=== PATIENT | male | born 1960 | race Caucasian/White ===

== ENCOUNTER 2016-10-20 05:51 | Day surgery (SDC) | payer BC ==
[2016-10-20] MEDS ORDERED: Lactated Ringers 1,000 ML IV SCH (06:30)
[2016-10-20] MEDS ORDERED: DIPRIVAN 200 MG/20 ML IV ONE (08:00)
[2016-10-20 08:15] VITALS: O2SAT 96
[2016-10-20 08:38] VITALS: BP 138/88; PULSE 74
[2016-10-20] MEDS ORDERED: Ketamine HCl 50 MG/ML IJ ONE (09:00)
--- NOTE | 2016-10-20 09:51 | OP ---
SURGERY DATE/TIME: 10/20/2016721 PREOPERATIVE DIAGNOSIS: Abdominal pain, constipation. POSTOPERATIVE DIAGNOSIS: Constipation and focal area of ischemic appearing colon and the ascending colon otherwise normal colon. PROCEDURE: Colonoscopy. SURGEON: Dr. Ferrell. ANESTHESIA: MAC. Medications given by anesthesia department. HISTORY: The patient is a 55 year-old white male patient presenting now for complaints of abdominal pain. He reports the pain is in the periumbilical area. He also reports that he has been having trouble with constipation. The patient has never been evaluated previously. He was felt the need to have endoscopic evaluation. He was appraised of the risks of the procedure including the risk of perforation, phlebitis, untoward reaction to medication, bleeding, and missed lesions. The patient verbalized his understanding and desired to have the procedure performed. DESCRIPTION OF PROCEDURE: The patient was given the medications by the anesthesia department. He had continuous pulse oximetry, ECG monitoring, intermittent blood pressure monitoring, and tidal CO2 monitoring during the examination. He was placed in the left lateral decubitus position. A digital rectal examination was performed and revealed normal anal sphincter tone and no masses and normal prostate. The flexible Olympus pediatric colonoscope was used to intubate the rectum. A view of the colon was developed sequentially to the cecum. Upon insertion and withdrawal there was noted semi-solid stool throughout the colon. We were however able to progress to the ascending colon without much difficulty. In the ascending colon area we did notice an area that appeared to be blanched and slightly friable concerning for the possibility of ischemic changes. The patient does have a history of previous coronary artery disease and myocardial infarction. Upon insertion and withdrawal including retroflex view in the rectum, no mucosal lesions otherwise being noted. The scope was removed from the patient who tolerated the procedure well and was sent back to OP recovery in good condition. The prep was noted to be poor.
== END 2016-10-20 08:45 | disposition home or self-care (01) ==
LOC: SDC 05:51
PROVIDERS: ATTEND Family Medicine
PROC: 0DJD8ZZ Inspection of Lower Intestinal Tract, Via Natural or Artificial Opening Endoscopic (ICD-10-PCS; principal; 2016-10-20)
DX: K59.00 Constipation, unspecified (principal); I10 Essential (primary) hypertension; I25.10 Atherosclerotic heart disease of native coronary artery without angina pectoris; I25.2 Old myocardial infarction
CPT/HCPCS: 00810; J2704

== ENCOUNTER 2024-10-24 23:54 | Emergency (ER) | payer OTHER ==
[2024-10-25 00:05] VITALS: TEMP 98.1
--- NOTE | 2024-10-25 00:05 | ERPHSYRPT ---
- History of Present Illness Historian: patient Exam Limitations: no limitations Physician History: Patient developed some chest pain right after he ate dinner. This was about 4 hours ago. He said it is in his substernal area. He says it feels tight and like a burn he said it was really intense at first and it hurt to breathe when it was going on. Symptoms have persisted but have also improved. HeHas a history of reflux and said that this feels somewhat similar. He also has a history of coronary vascular disease. He did not have any nausea. He did not have any shortness of breath but said it hurt to take deep breaths especially when the chest pain was at its worst. He has not thrown up. He says he feels like he needs to belch and it would get better. Aspirin Treatment Today: 81 mg x 4 Allergies/Adverse Reactions: codeine Allergy (Intermediate, Verified 10/25/24 00:13) Nausea severe cramping Home Medications: Atorvastatin Calcium [Lipitor 20MG Tablet] 20 mg PO HS 10/11/16 [History] Aspirin EC 81 mg [Ecotrin 81 mg] 81 mg PO DAILY 10/25/24 [History] Loratadine 10 mg [Claritin 10 mg] 10 mg PO DAILY 10/25/24 [History] Losartan/Hydrochlorothiazide [Losartan-Hctz 100-12.5 mg Tab] 1 each PO DAILY 10/25/24 [History] Nebivolol HCl 5 MG [Bystolic 5 MG] 20 mg PO DAILY 10/25/24 [History] PANTOPRAZOLE 40 mg Tablet [Protonix 40MG Tablet] 40 mg PO HS 10/25/24 [History] Hx Tetanus, Diphtheria Vaccination/Date Given: No Hx Influenza Vaccination/Date Given: No Hx Pneumococcal Vaccination/Date Given: No - Review of Systems Constitutional: No Symptoms Eyes: No Symptoms Ears, Nose, & Throat: No Symptoms Respiratory: No Symptoms Cardiac: Chest Pain Genitourinary Symptoms: No Symptoms Musculoskeletal: No Symptoms All Other Systems: Reviewed and Negative - Past Medical History Pertinent Past Medical History: Yes Neurological History: No Pertinent History ENT History: No Pertinent History Cardiac History: Coronary Artery Disease, High Cholesterol, Hypertension, [place] cardial Infarction ([place]) Respiratory History: Sleep Apnea Endocrine Medical History: No Pertinent History Musculoskeletal History: Arthritis GI Medical History: GERD History: No Pertinent History Psycho-Social History: No Pertinent History Male Reproductive Disorders: No Pertinent History Other Medical History: periumbilical abcess, patient has sleep apnea - Past Surgical History Past Surgical History: Yes Neuro Surgical History: No Pertinent History Cardiac: Cardiac Catheterization, Cardiac Stent Respiratory: No Pertinent History Gastrointestinal: Hernia Repair Genitourinary: No Pertinent History Musculoskeletal: No Pertinent History Male Surgical History: No Pertinent History Significant Family History: heart disease, hypertension - Social History Smoking Status: Never smoker Exposure to second hand smoke: Yes Drug Use: none - Nursing Vital Signs Nursing Vital Signs: Initial Vital Signs Temperature 98.1 F 10/24/24 23:56 Pulse Rate 114 H 10/24/24 23:56 Respiratory Rate 18 10/24/24 23:56 Blood Pressure 199/103 10/24/24 23:56 O2 Sat by Pulse Oximetry 95 10/24/24 23:56 Pain Scale Pain Intensity 0 - Physical Exam General Appearance: no apparent distress Eye Exam: PERRL/EOMI Neck Exam: normal inspection Respiratory Exam: normal breath sounds, lungs clear, No chest tenderness, No respiratory distress Cardiovascular Exam: regular rate/rhythm, normal heart sounds, normal peripheral pulses Gastrointestinal/Abdomen Exam: soft, normal bowel sounds, No tenderness Back Exam: normal inspection, normal range of motion Extremity Exam: normal inspection, normal range of motion Neurologic Exam: alert, oriented x 3, cooperative, 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, normal mood/affect Skin Exam: normal color, warm, dry - Course EKG Interpreted by Me: RATE, Sinus Tach, Left Henrietta Deviation, NORMAL QRS, Non- specific ST Changes Ordered Tests: Active Orders 24 hr Category Date Time Status CBC W DIFF Stat Lab 10/25/24 00:30 Completed CMP Stat Lab 10/25/24 00:30 Completed D-DIMER QUANTITATIVE Stat Lab 10/25/24 00:32 Completed Lactic Acid Stat Lab 10/25/24 02:09 Completed Lactic Acid Stat Lab 10/25/24 03:45 Completed MAG [MAGNESIUM] Stat Lab 10/25/24 00:30 Completed TROPONIN Q4H Lab 10/25/24 00:30 Completed TROPONIN Q4H Lab 10/25/24 03:36 Completed TROPONIN Q4H Lab 10/25/24 09:30 Ordered VENOUS BLOOD GAS Stat Lab 10/25/24 01:54 Completed Medication Summary Discontinued Medications Generic Name Dose Route Start Last Admin Trade Name Jose A PRN Reason Stop Dose Admin Al Hydrox/Mg Hydrox/Simethicone Confirm 10/25/24 00:23 Mag Hydrox/Al Hydrox/Simeth 30 Ml Udcup Administered 10/25/24 00:24 Dose 30 ml .ROUTE .STK-MED ONE Aspirin 324 mg 10/25/24 00:09 10/25/24 00:18 Aspirin 81 Mg Tab.Chew PO 10/25/24 00:10 Not Given STAT ONE Sodium Chloride 1,000 mls @ 999 mls/hr 10/25/24 01:53 10/25/24 03:04 Sodium Chloride 0.9% 1000 Ml IV 10/25/24 02:53 Infused .Q1H1M STA Infusion Sodium Chloride Confirm 10/25/24 02:02 Sodium Chloride 0.9% 1000 Ml Administered 10/25/24 02:03 Dose 1,000 mls @ ud .ROUTE .STK-MED ONE Sodium Chloride 1,000 mls @ 999 mls/hr 10/25/24 02:26 10/25/24 04:08 Sodium Chloride 0.9% 1000 Ml IV 10/25/24 03:26 Infused .Q1H1M STA Infusion Sodium Chloride Confirm 10/25/24 02:57 Sodium Chloride 0.9% 1000 Ml Administered 10/25/24 02:58 Dose 1,000 mls @ ud .ROUTE .STK-MED ONE Lidocaine HCl Confirm 10/25/24 00:23 Lidocaine Hcl 2% Viscous 15 Ml Udcup Administered 10/25/24 00:24 Dose 15 ml .ROUTE .STK-MED ONE Magnesium Hydroxide 45 ml 10/25/24 00:09 10/25/24 00:24 Mag Hydrx/Alum Hyd/Simeth/Lido 45 Ml Bottle PO 10/25/24 00:10 45 ml STAT ONE Administration Lab/Rad Data: Laboratory Result Diagrams 10/25/24 00:30 10/25/24 00:30 Laboratory Results 10/25/24 10/25/24 10/25/24 Range/Units 03:45 03:36 02:09 WBC (4.23-9.07) x10^3/uL RBC (4.63-6.08) x10^6/uL Hgb (13.7-17.5) g/dL Hct (40.1-51.0) % MCV (79.0-92.2) fL MCH (25.7-32.2) pg MCHC (32.3-36.5) g/dL RDW (11.6-14.4) % Plt Count (163-337) x10^3/uL MPV (9.4-12.4) fL Gran % (34.0-67.9) % Immature Gran % (Auto) (0.001-0.429) % Nucleat RBC Rel Count (0.00-0.2) % Eos # (Auto) (0.04-0.54) x10^3/uL Immature Gran # (Auto) (0.001-0.031) x10^3u/L Absolute Lymphs (auto) (1.32-3.57) x10^3/uL Absolute Monos (auto) (0.30-0.82) x10^3/uL Absolute Nucleated RBC (0.00-0.012) x10^3u/L Lymphocytes % (21.8-53.1) % Monocytes % (5.3-12.2) % Eosinophils % (0.8-7.0) % Basophils % (0.2-1.2) % Absolute Granulocytes (1.78-5.38) x10^3/uL Basophils # (0.01-0.08) x10^3/uL D-Dimer (0.0-0.50) mg/L pO2/FiO2 Ratio % VBG pH (7.32-7.42) VBG pCO2 at Pat Temp (42-55) mm/Hg VBG pO2 at Pat Temp (25-40) mm/Hg VBG HCO3 (22-28) meq/L VBG O2 Sat (Yariel) (95-100) VBG Base Excess (-2.0-2.0) VBG Hemoglobin VBG Carboxyhemoglobin (0.0-6.9) % T HGB POC Potassium (3.5-5.1) Sodium (135-145) mmol/L Potassium (3.5-5.1) mmol/L Chloride (98-107) mmol/L Carbon Dioxide (22-30) mmol/L Anion Gap (5-15) MEQ/L BUN (9-20) mg/dL Creatinine (0.66-1.25) mg/dL Estimated GFR ML/MIN Glucose (74-106) mg/dL Lactic Acid 3.1 H 4.0 H (0.4-2.0) Calcium (8.4-10.2) mg/dL Magnesium (1.6-2.3) mg/dL Total Bilirubin (0.2-1.3) mg/dL AST (17-59) U/L ALT (0-50) U/L Alkaline Phosphatase (38-126) U/L Troponin I 0.475 H* (0.000-0.033) ng/mL Serum Total Protein (6.3-8.2) g/dL Albumin (3.5-5.0) g/dL 10/25/24 10/25/24 10/25/24 Range/Units 01:54 00:32 00:30 WBC (4.23-9.07) x10^3/uL RBC (4.63-6.08) x10^6/uL Hgb (13.7-17.5) g/dL Hct (40.1-51.0) % MCV (79.0-92.2) fL MCH (25.7-32.2) pg MCHC (32.3-36.5) g/dL RDW (11.6-14.4) % Plt Count (163-337) x10^3/uL MPV (9.4-12.4) fL Gran % (34.0-67.9) % Immature Gran % (Auto) (0.001-0.429) % Nucleat RBC Rel Count (0.00-0.2) % Eos # (Auto) (0.04-0.54) x10^3/uL Immature Gran # (Auto) (0.001-0.031) x10^3u/L Absolute Lymphs (auto) (1.32-3.57) x10^3/uL Absolute Monos (auto) (0.30-0.82) x10^3/uL Absolute Nucleated RBC (0.00-0.012) x10^3u/L Lymphocytes % (21.8-53.1) % Monocytes % (5.3-12.2) % Eosinophils % (0.8-7.0) % Basophils % (0.2-1.2) % Absolute Granulocytes (1.78-5.38) x10^3/uL Basophils # (0.01-0.08) x10^3/uL D-Dimer < 0.19 (0.0-0.50) mg/L pO2/FiO2 Ratio 21.0 % VBG pH 7.41 (7.32-7.42) VBG pCO2 at Pat Temp 31 L (42-55) mm/Hg VBG pO2 at Pat Temp 77 H (25-40) mm/Hg VBG HCO3 19.6 L (22-28) meq/L VBG O2 Sat (Yariel) 97.2 (95-100) VBG Base Excess -3.7 L (-2.0-2.0) VBG Hemoglobin 17.6 VBG Carboxyhemoglobin 2.7 (0.0-6.9) % T HGB POC Potassium 4.7 (3.5-5.1) Sodium (135-145) mmol/L Potassium (3.5-5.1) mmol/L Chloride (98-107) mmol/L Carbon Dioxide (22-30) mmol/L Anion Gap (5-15) MEQ/L BUN (9-20) mg/dL Creatinine (0.66-1.25) mg/dL Estimated GFR ML/MIN Glucose (74-106) mg/dL Lactic Acid (0.4-2.0) Calcium (8.4-10.2) mg/dL Magnesium (1.6-2.3) mg/dL Total Bilirubin (0.2-1.3) mg/dL AST (17-59) U/L ALT (0-50) U/L Alkaline Phosphatase (38-126) U/L Troponin I 0.014 (0.000-0.033) ng/mL Serum Total Protein (6.3-8.2) g/dL Albumin (3.5-5.0) g/dL 10/25/24 10/25/24 Range/Units 00:30 00:30 WBC 7.2 (4.23-9.07) x10^3/uL RBC 5.55 (4.63-6.08) x10^6/uL Hgb 17.0 (13.7-17.5) g/dL Hct 48.2 (40.1-51.0) % MCV 86.8 (79.0-92.2) fL MCH 30.6 (25.7-32.2) pg MCHC 35.3 (32.3-36.5) g/dL RDW 13.1 (11.6-14.4) % Plt Count 236 (163-337) x10^3/uL MPV 9.2 L (9.4-12.4) fL Gran % 91.6 H (34.0-67.9) % Immature Gran % (Auto) 0.8 H (0.001-0.429) % Nucleat RBC Rel Count 0.0 (0.00-0.2) % Eos # (Auto) 0 L (0.04-0.54) x10^3/uL Immature Gran # (Auto) 0.06 H (0.001-0.031) x10^3u/L Absolute Lymphs (auto) 0.41 L (1.32-3.57) x10^3/uL Absolute Monos (auto) 0.13 L (0.30-0.82) x10^3/uL Absolute Nucleated RBC 0.00 (0.00-0.012) x10^3u/L Lymphocytes % 5.7 L (21.8-53.1) % Monocytes % 1.8 L (5.3-12.2) % Eosinophils % 0.0 L (0.8-7.0) % Basophils % 0.1 L (0.2-1.2) % Absolute Granulocytes 6.59 H (1.78-5.38) x10^3/uL Basophils # 0.01 (0.01-0.08) x10^3/uL D-Dimer (0.0-0.50) mg/L pO2/FiO2 Ratio % VBG pH (7.32-7.42) VBG pCO2 at Pat Temp (42-55) mm/Hg VBG pO2 at Pat Temp (25-40) mm/Hg VBG HCO3 (22-28) meq/L VBG O2 Sat (Yariel) (95-100) VBG Base Excess (-2.0-2.0) VBG Hemoglobin VBG Carboxyhemoglobin (0.0-6.9) % T HGB POC Potassium (3.5-5.1) Sodium 138 (135-145) mmol/L Potassium 4.2 (3.5-5.1) mmol/L Chloride 104 (98-107) mmol/L Carbon Dioxide 14 L* (22-30) mmol/L Anion Gap 23.8 H (5-15) MEQ/L BUN 15 (9-20) mg/dL Creatinine 0.96 (0.66-1.25) mg/dL Estimated GFR 89.4 ML/MIN Glucose 230 H (74-106) mg/dL Lactic Acid (0.4-2.0) Calcium 9.7 (8.4-10.2) mg/dL Magnesium 2.0 (1.6-2.3) mg/dL Total Bilirubin 0.80 (0.2-1.3) mg/dL AST 30 (17-59) U/L ALT 38 (0-50) U/L Alkaline Phosphatase 79 (38-126) U/L Troponin I (0.000-0.033) ng/mL Serum Total Protein 7.8 (6.3-8.2) g/dL Albumin 5.0 (3.5-5.0) g/dL - Progress Progress: improved Air Movement: good Progress Note: At this time the patient's symptoms seem to be GI related. Also he said that it did get worse whenever he lay down to go to sleep but whenever he laid flat that is when the symptoms started. That does indicate are 0.2 reflux type a cause. We are of course going to rule out coronary vascular etiologies. I will going to get an initial troponin and repeat 1 in 3 hours. His EKG was done it was tachycardia but there were no ST or T changes.The patient is not short of breath.The patient drank a GI cocktail and his symptoms resolved. I am going to get a initial troponin and then 3-hour troponin and if those are okay he can go home.I am going to start him onAnd H2 lisa.His first troponinWas not elevated. His second 1 came backAt 0.475. His initial EKG was interpreted by me. It was sinus tachycardia. There is no ST or T changes. There is some LVH. His repeat troponin came back at 0.475 his repeat EKG showed sinus tachycardia with no acute changes or no acute ST changes. His some left ventricular hypertrophy as well.I am going to start him on heparin and call [facility] transfer for an NSTEMI. The patient refused admission. I told him that he was at risk for worsening of his condition and possible . He said he just wants to go home. Will have him sign out AMA. His lactic acid was elevated at 4. His initial chemistry panel showed a bicarb of 14. A repeat on VBG showed 7.4 pH and a bicarb of 19. I started the patient on 2 L of fluids. We are waiting on a second troponin. It came back elevated. I went to talk to the patient about transfer and he adamantly refused. I explained to him that he has some complicated issues going on and needs to be evaluated and he refused. He was in his right mind and was able to make informed decisions.I warned him of complications including worsening and 10/25/24 00:28 10/25/24 01:10 10/25/24 04:36 10/25/24 04:48 10/25/24 04:50 Blood Culture(s) Obtained: No Medical Desision Making - Independent Historian Additional History obtained from: Spouse - Diagnostic Testing Diagnostic test were ordered, analyzed, and reviewed by me: Yes - Risk of complications Minimal Risk: Minimal risk of morbidity The pt has a mod risk of morbidity or mortality based on: Need for prescription drug management - Departure Departure Disposition: AMA Clinical Impression: NSTEMI (non-ST elevated myocardial infarction) Condition: Fair Critical Care Time: No Referrals: DANIEL DAY MD [Primary Care Provider] - Follow up/PCP as directed Prescriptions: Famotidine 0 mg PO BID #30 tablet
[2024-10-25] MEDS: BABY ASPIRIN 81 MG CHEW PO ONE (00:18)
[2024-10-25] MEDS ORDERED: MAALOX ES 30 ML UNIT DOSE ONE (00:23)
[2024-10-25] MEDS ORDERED: XYLOCAINE VISCOUS 2% 15 ML CUP ONE (00:23)
[2024-10-25] MEDS: GI COCKTAIL 45 ML (Maalox/Lidocaine) PO ONE (00:24)
[2024-10-25 01:29] LABS: Absolute Neutrophil Ct (ANC) 6.59 x10^3/uL (1.78-5.38); BASOPHIL % 0.1 % (0.2-1.2); Basophil (Absolute #) 0.01 x10^3/uL (0.01-0.08); Eosinophil (Absolute #) 0 x10^3/uL (0.04-0.54); Hematocrit 48.2 % (40.1-51.0); IMMATURE GRAN # 0.06 x10^3u/L (0.001-0.031); IMMATURE GRAN % 0.8 % (0.001-0.429); Lymphocyte (Absolute #) 0.41 x10^3/uL (1.32-3.57); Lymphocytes % 5.7 % (21.8-53.1); Mean Cell Volume 86.8 fL (79.0-92.2); Mean Corpuscular Hemoglobin 30.6 pg (25.7-32.2); Mean Corpuscular Hgb Concent. 35.3 g/dL (32.3-36.5); Mean Platelet Volume 9.2 fL (9.4-12.4); Monocyte (Absolute #) 0.13 x10^3/uL (0.30-0.82); Monocytes % 1.8 % (5.3-12.2); Neutrophil % 91.6 % (34.0-67.9); Platelet Count 236 x10^3/uL (163-337); Red Blood Count 5.55 x10^6/uL (4.63-6.08); Red Cell Distribution Width 13.1 % (11.6-14.4); White Blood Count 7.2 x10^3/uL (4.23-9.07)
[2024-10-25 01:35] LABS: ANION GAP 23.8 MEQ/L (5-15); BILIRUBIN,TOTAL 0.8 mg/dL (0.2-1.3); Calcium 9.7 mg/dL (8.4-10.2); Creatinine 1 0.96 mg/dL (0.66-1.25); EST GLOMERULAR FILTRATION RATE 89.4 ML/MIN; Potassium 4.2 mmol/L (3.5-5.1); Total Protein 7.8 g/dL (6.3-8.2)
[2024-10-25] MEDS ORDERED: Sodium Chloride 0.9% 1000 ML 1,000 ML ONE ×2 (02:02→02:57)
[2024-10-25 02:04] LABS: VBG BASE EXCESS -3.7 (-2.0-2.0); VBG CARBOXYHEMOGLOBIN 2.7 % T HGB (0.0-6.9); VBG HCO3- 19.6 meq/L (22-28); VBG HEMOGLOBIN 17.6; VBG O2 SATURATION 97.2 (95-100); VBG POTASSIUM 4.7 (3.5-5.1); VBG pH 7.41 (7.32-7.42)
[2024-10-25] MEDS: Sodium Chloride 0.9% 1000 ML 1,000 ML IV STA ×2 (02:04→03:08)
[2024-10-25 05:14] VITALS: BP 130/70; PULSE 80; RESP 18; O2SAT 97
== END 2024-10-25 05:05 | disposition left against medical advice (07) ==
LOC: ED 23:54
DX: I21.4 Non-ST elevation (NSTEMI) myocardial infarction (principal); E78.5 Hyperlipidemia, unspecified; I10 Essential (primary) hypertension; Z79.899 Other long term (current) drug therapy
CPT/HCPCS: 36415; 80053; 82805; 83605; 83735; 84484; 85025; 85379; 93005; 96360; 96361; 99284; A9270-GY